=== PATIENT | female | born 1965 ===

== ENCOUNTER 2016-10-17 17:47 | Inpatient (IN) | payer OTHER ==
[2016-10-17] MEDS ORDERED: Sodium Chloride 0.9% 1,000 ML IV ONE (18:26)
--- NOTE | 2016-10-17 18:49 | RAD ---
PROCEDURE: CHEST RADIOGRAPH, 1 VIEW portable semi upright study 18:32. HISTORY: adm, epigastric COMPARISON: None available. FINDINGS: LUNGS: Clear. PLEURA: No pneumothorax or pleural fluid seen. CARDIOVASCULAR: No radiographic findings to suggest acute or significant cardiovascular disease. OSSEOUS STRUCTURES: No significant abnormalities. VISUALIZED UPPER ABDOMEN: Normal. OTHER FINDINGS: None. IMPRESSION: No active disease. Concordant results with the preliminary interpretation rendered by the emergency department physician procedure.
[2016-10-17 18:55] LABS: RBC URINE 1 /hpf (0-3); URINE BACTERIA RARE (<OCC); URINE BILIRUBIN NEGATIVE (NEGATIVE); URINE COLOR Straw (YELLOW); URINE GLUCOSE (UA) NORMAL (Normal); URINE KETONE NEGATIVE (NEGATIVE); URINE LEUKOCYTE ESTERASE NEG Leu/uL (Negative); URINE PROTEIN NEGATIVE (NEGATIVE); URINE UROBILINOGEN NORMAL mg/dL (0.2-1.0); WBC URINE 1 /hpf (0-5)
[2016-10-17 18:58] LABS: BASO # 0.1 K/uL (0.0-0.2); BASO % 0.4 % (0.0-2.0); EOS # 0.3 K/uL (0.0-0.7); EOS % 1.9 % (0.0-4.0); LYMPH # 2.1 K/uL (1.0-4.3); LYMPH % 14.5 % (20.0-40.0); MEAN CELL VOLUME 85.4 fL (81.0-99.0); MEAN CORPUSCULAR HEMOGLOBIN 28.6 pg (27.0-31.0); MEAN CORPUSCULAR HGB CONC 33.5 g/dL (33.0-37.0); MEAN PLATELET VOLUME 7.9 fL (7.2-11.7); MONO # 0.8 K/uL (0.0-0.8); MONO % 5.7 % (0.0-10.0); RED CELL DISTRIBUTION WIDTH 13.6 % (11.5-14.5); WHITE BLOOD COUNT 14.7 K/uL (4.8-10.8)
[2016-10-17] MEDS ORDERED: Sodium Chloride 0.9% 1,000 ML ONE (19:00)
[2016-10-17 19:01] LABS: URINE BLOOD NEGATIVE (NEGATIVE)
[2016-10-17 19:02] LABS: POTASSIUM 3.5 mmol/L (3.6-5.2); SODIUM 139 mmol/L (132-148)
[2016-10-17 19:04] LABS: ALB/GLOB RATIO 1.4 (1.0-2.1); ALKALINE PHOSPHATASE 126 U/L (38-126); AST/SGOT 24 U/L (14-36); BILIRUBIN,TOTAL 1.2 mg/dL (0.2-1.3); BLOOD UREA NITROGEN 12 mg/dL (7-17); CARBON DIOXIDE 28 mmol/L (22-30); GFR AFRICAN-AMERICAN > 60; TOTAL PROTEIN 7.6 g/dL (6.3-8.3)
[2016-10-17 19:05] LABS: ALT/SGPT 31 U/L (9-52); CALCIUM 9.1 mg/dl (8.6-10.4); GLUCOSE,RANDOM 109 mg/dL (65-105)
[2016-10-17 19:12] LABS: INR 1.1
[2016-10-17] MEDS ORDERED: Iohexol 350mg/ml 100 ML ONE (19:30)
--- NOTE | 2016-10-17 19:41 | C.PDOC ---
History Of Present Illness A 51 year old female presents to the ER c/o right upper quadrant pain for 2 days. Patient notes that symptoms are worse with food. Patient denies nausea, vomiting, diarrhea, fever, chills, trauma, vaginal bleeding or discharge, dysuria, or hematuria, or any other complaints. Time Seen by Provider: 10/17/16 18:15 Chief Complaint (Nursing): Abdominal Pain History Per: Patient History/Exam Limitations: no limitations Onset/Duration Of Symptoms: Days Current Symptoms Are (Timing): Still Present Severity: Mild Location Of Pain/Discomfort: RUQ Associated Symptoms: denies: Fever, Chills, Diarrhea Exacerbating Factors: Food Recent travel outside of the [place]: No Additional History Per: Patient Past Medical History Reviewed: Historical Data, Nursing Documentation, Vital Signs Vital Signs: Last Vital Signs Temp 98.5 F 10/17/16 18:07 Pulse 90 10/17/16 18:07 Resp 18 10/17/16 18:07 BP 139/79 10/17/16 18:07 Pulse Ox 100 10/17/16 22:01 - Medical History PMH: HTN, Hypercholesterolemia Family History: States: Unknown Family Hx - Social History Hx Alcohol Use: No Hx Substance Use: No - Immunization History Hx Tetanus Toxoid Vaccination: No Hx Influenza Vaccination: Yes Hx Pneumococcal Vaccination: No Review Of Systems Except As Marked, All Systems Reviewed And Found Negative. Constitutional: Negative for: Fever, Chills, Other (Trauma) Gastrointestinal: Positive for: Abdominal Pain. Negative for: Nausea, Vomiting , Diarrhea Genitourinary: Negative for: Dysuria, Hematuria, Vaginal Discharge, Vaginal Bleeding Physical Exam - Physical Exam Appears: Non-toxic, No Acute Distress, Other (Obese) Skin: Warm, Dry Head: Atraumatic, Normacephalic Eye(s): bilateral: Normal Inspection Cardiovascular: Rhythm Regular, No Murmur Respiratory: Normal Breath Sounds, No Rales, No Rhonchi, No Wheezing Gastrointestinal/Abdominal: Soft, Tenderness (RUQ tenderness) Neurological/Psych: Oriented x3, Normal Speech, Normal Cognition ED Course And Treatment - Laboratory Results Result Diagrams: 10/17/16 18:48 10/17/16 18:48 Lab Interpretation: Normal ECG: Interpreted By Mo ECG Rhythm: Sinus Rhythm, R BBB, Nonspecific Changes (? L posterior fascicular block) ECG Interpretation: Normal Rate From EC O2 Sat by Pulse Oximetry: 100 (RA) Pulse Ox Interpretation: Normal - Radiology CXR: Interpreted by Me CXR Interpretation: Yes: No Acute Disease - CT Scan/US CT Abd/Pel Other Rad Studies (CT/US): Interpreted By Me, Read By Radiologist CT/US Interpretation: FINDINGS: Lower thorax: The heart is mildly enlarged. There is minimal dependent atelectasis at the lung. bases. There is minimal scarring at the lung bases. ABDOMEN: Liver: There is fatty infiltration of the liver.The liver is enlarged. Gallbladder and bile ducts: Gallbladder is distended. There is pericholecystic fluid/edema. There is. no ductal dilatation. Pancreas: unremarkable. Spleen: unremarkable. Adrenals: unremarkable. Kidneys and ureters: unremarkable. Stomach and bowel: Stomach is partially distended. There is mild duodenal wall thickening. Rotation is normal. There is no obstruction. There is fluid and air throughout the small. bowel.moderate stool and air in the colon. There is scattered diverticulosis. Appendix: See stomach and bowel. PELVIS: Bladder: unremarkable. Reproductive : Uterus is absent. There are no adnexal masses. ABDOMEN and PELVIS: Intraperitoneal space: There are surgical clips in the pelvis. There is no free fluid.There is no free. air. Bones/joints: There is sclerosis of the sacroiliac joints.There are degenerative changes in the. osseus structures. Soft tissues: There is a small fat containing umbilical hernia. Vasculature: There is minimal atherosclerotic calcification in the aorta. Lymph nodes: There is no pathologic adenopathy. IMPRESSION: Distended gallbladder with pericholecystic fluid suggest cholecystitis; large fatty liver;. no CT findings of appendicitis or diverticulitis. Additional findings as described above. Progress Note: IVF, zosyn, toradol Reevaluation Time: 22:11 Reassessment Condition: Improved - Physician Consult Information Outcome Of Conversation: 2210: d/w Dr. Viveros (Surgery Science Consultant) and Surg To-ok to Gen Surg Medical Decision Making Medical Decision Making: Impression: 51 y.o c/o RUQ pain for 2 days Plans: -CT Abd/Pel -EKG -IV fluids -Toradol -Pepcid -Reassess and disposition Disposition Doctor Will See Patient In The: Hospital Counseled Patient/Family Regarding: Studies Performed, Diagnosis - Disposition Disposition: HOSPITALIZED Disposition Time: 22:12 Condition: GOOD - Clinical Impression Clinical Impression: Cholecystitis - Scribe Statement The provider has reviewed the documentation as recorded by the Scribe Rajinder espinoza All medical record entries made by the Nandoibe were at my direction and personally dictated by me. I have reviewed the chart and agree that the record accurately reflects my personal performance of the history, physical exam, medical decision making, and the department course for this patient. I have also personally directed, reviewed, and agree with the discharge instructions and disposition.
[2016-10-17] MEDS ORDERED: Piperacillin/Tazobact 3.375 gm 100 ML IV STA (20:26)
[2016-10-17] MEDS ORDERED: Piperacillin/Tazobact 3.375 gm 100 ML IVPB ONE (20:45)
--- NOTE | 2016-10-17 21:33 | CT ---
EXAM: CT Abdomen and Pelvis With Intravenous Contrast CLINICAL HISTORY: 51 years old, female; Pain; Abdominal pain; Flank; Right upper quadrant (ruq); Additional info: Ruq x 2 days, ? gb TECHNIQUE: Axial computed tomography images of the abdomen and pelvis with intravenous contrast. This CT exam was performed using one or more of the following dose reduction techniques: automated exposure control, adjustment of the mA and/or kV according to patient size, and/or use of iterative reconstruction technique. Coronal and sagittal reformatted images were created and reviewed. CONTRAST: 100 mL of omnipaque 350 administered intravenously. EXAM DATE/TIME: 10/17/2016 6:26 PM COMPARISON: There are no prior studies for comparison. FINDINGS: Lower thorax: The heart is mildly enlarged. There is minimal dependent atelectasis at the lung bases. There is minimal scarring at the lung bases. ABDOMEN: Liver: There is fatty infiltration of the liver.The liver is enlarged. Gallbladder and bile ducts: Gallbladder is distended. There is pericholecystic fluid/edema. There is no ductal dilatation. Pancreas: unremarkable Spleen: unremarkable Adrenals: unremarkable Kidneys and ureters: unremarkable Stomach and bowel: Stomach is partially distended. There is mild duodenal wall thickening. Rotation is normal. There is no obstruction. There is fluid and air throughout the small bowel.moderate stool and air in the colon. There is scattered diverticulosis. Appendix: See stomach and bowel PELVIS: Bladder: unremarkable Reproductive: Uterus is absent. There are no adnexal masses. ABDOMEN and PELVIS: Intraperitoneal space: There are surgical clips in the pelvis. There is no free fluid.There is no free air. Bones/joints: There is sclerosis of the sacroiliac joints.There are degenerative changes in the osseus structures. Soft tissues: There is a small fat containing umbilical hernia. Vasculature: There is minimal atherosclerotic calcification in the aorta. Lymph nodes: There is no pathologic adenopathy. IMPRESSION: Distended gallbladder with pericholecystic fluid suggest cholecystitis; large fatty liver; no CT findings of appendicitis or diverticulitis Additional findings as described above.
[2016-10-17] MEDS ORDERED: HYDROmorphone 0.5 mg/0.5 ml ISec IVP PRN (22:39)
[2016-10-17] MEDS ORDERED: Piperacillin/Tazobact 3.375 GM in Sodium Chloride 100 ML IVPB SCH (22:45)
[2016-10-17] MEDS: Piperacill/Tazo 3.375gm in Dex 3.375 GM/50 ML BAG IVPB SCH ×2 (23:00→23:25)
[2016-10-17] MEDS: Sodium Chloride 0.9% 1,000 ML IV SCH (23:15)
--- NOTE | 2016-10-18 04:10 | CP.PCM.CON ---
History of Present Illness - History of Present Illness History of Present Illness: General Surgery Consult Note for Dr. Viveros CC: Abdominal Pain since Friday HPI: This is a 51F with a PMH of HTN and HLD who presented to the [facility] ED due to abdominal pain she has been experiencing since Friday. She reports that it would come and go often brought on by greasy foods. Nothing makes it better food makes it worse. She denies any fevers at home however she reports chills. She denies any nausea vomitting or diarrhea. The patient denies any urinary symptoms, chest pain, or SOB. PMH: See above PSH: Open Hysterectomy ALL: NKDA Social: Denies Smoking, ETOH, Drugs Review of Systems - Review of Systems All systems: reviewed and no additional remarkable complaints except Past Patient History - Infectious Disease Hx of Infectious Diseases: None - Past Medical History & Family History Past Medical History?: Yes - Past Social History Smoking Status: Never Smoked - CARDIAC Hx Cardiac Disorders: Yes Hx Hypercholesterolemia: Yes Hx Hypertension: Yes - PULMONARY Hx Respiratory Disorders: No - NEUROLOGICAL Hx Neurological Disorder: No - HEENT Hx HEENT Problems: No - RENAL Hx Chronic Kidney Disease: No - ENDOCRINE/METABOLIC Hx Endocrine Disorders: No - HEMATOLOGICAL/ONCOLOGICAL Hx Blood Disorders: No - INTEGUMENTARY Hx Dermatological Problems: No - MUSCULOSKELETAL/RHEUMATOLOGICAL Hx Musculoskeletal Disorders: No Hx Falls: No - GASTROINTESTINAL Hx Gastrointestinal Disorders: No - GENITOURINARY/GYNECOLOGICAL Hx Genitourinary Disorders: No - PSYCHIATRIC Hx Psychophysiologic Disorder: No Hx Substance Use: No - SURGICAL HISTORY Hx Surgeries: Yes Hx Hysterectomy: Yes (2004) - ANESTHESIA Hx Anesthesia: Yes Hx Anesthesia Reactions: No Hx Malignant Hyperthermia: No Meds Allergies/Adverse Reactions: Allergies Allergy/AdvReac Type Severity Reaction Status Date / Time No Known Allergies Allergy Verified 10/17/16 18:26 - Medications Medications: Current Medications Hydromorphone HCl (Dilaudid) 0.5 mg IVP Q4H PRN PRN Reason: Pain, severe (8-10) Sodium Chloride (Sodium Chloride 0.9%) 1,000 mls @ 100 mls/hr IV .Q10H ZENAIDA Last Admin: 10/17/16 23:15 Dose: 100 mls/hr Piperacillin Sod/Tazobactam Sod (Zosyn 3.375 Gm Iv Premix) 3.375 gm in 50 mls @ 100 mls/hr IVPB Q8H [facility] Ondansetron HCl (Zofran Inj) 4 mg IVP Q4 PRN PRN Reason: Nausea/Vomiting Pneumococcal Polyvalent Vaccine (Pneumovax 23 Vaccine) 0.5 ml IM .ONCE ONE Stop: 10/20/16 10:01 Physical Exam - Constitutional Appears: Non-toxic, No Acute Distress - Head Exam Head Exam: ATRAUMATIC, NORMOCEPHALIC - Eye Exam Eye Exam: EOMI, Normal appearance - ENT Exam ENT Exam: Mucous Membranes Moist - Respiratory Exam Respiratory Exam: NORMAL BREATHING PATTERN - Cardiovascular Exam Cardiovascular Exam: REGULAR RHYTHM - GI/Abdominal Exam GI & Abdominal Exam: Soft, Tenderness. absent: Distended, Firm, Hernia, Rigid - Neurological Exam Neurological exam: Alert, Oriented x3 - Psychiatric Exam Psychiatric exam: Normal Affect, Normal Mood - Skin Skin Exam: Dry, Intact, Normal Color Results - Vital Signs Recent Vital Signs: Last Vital Signs Temp 98.1 F 10/18/16 00:18 Pulse 73 10/18/16 00:18 Resp 20 10/18/16 00:18 BP 117/76 10/18/16 00:18 Pulse Ox 97 10/18/16 00:18 - Labs Result Diagrams: 10/17/16 18:48 10/17/16 18:48 - Imaging and Cardiology CT scan - abdomen Status: Image reviewed by me, Report reviewed by me US - abdomen Status: Image reviewed by me, Report reviewed by me Assessment & Plan - Assessment and Plan (Free Text) Assessment: This is a 51F with a PMH of HLD and HTN who is presenting with acute cholecystitis, CT showed GB wall thickening and distended GB Admitted to Dr. Hull' Service GB US official read pending VSS, Labs grossly normal NPO Zosyn Dilaudid OR Booked as addon on friday D/W Dr. Felice Roy PGY-1
[2016-10-18] MEDS: Piperacill/Tazo 3.375gm in Dex 3.375 GM/50 ML BAG IVPB SCH ×3 (05:05→21:30)
--- NOTE | 2016-10-18 06:21 | CP.PCM.HP ---
History of Present Illness - History of Present Illness History of Present Illness: History of Present Illness: General Surgery Consult Note for Dr. Viveros CC: Abdominal Pain since Friday HPI: This is a 51F with a PMH of HTN and HLD who presented to the [facility] ED due to abdominal pain she has been experiencing since Friday. She reports that it would come and go often brought on by greasy foods. Nothing makes it better food makes it worse. She denies any fevers at home however she reports chills. She denies any nausea vomitting or diarrhea. The patient denies any urinary symptoms, chest pain, or SOB. PMH: See above PSH: Open Hysterectomy ALL: NKDA Social: Denies Smoking, ETOH, Drugs Review of Systems - Review of Systems All systems: reviewed and no additional remarkable complaints except Past Patient History - Infectious Disease Hx of Infectious Diseases: None - Past Medical History & Family History Past Medical History?: Yes - Past Social History Smoking Status: Never Smoked - CARDIAC Hx Cardiac Disorders: Yes Hx Hypercholesterolemia: Yes Hx Hypertension: Yes - PULMONARY Hx Respiratory Disorders: No - NEUROLOGICAL Hx Neurological Disorder: No - HEENT Hx HEENT Problems: No - RENAL Hx Chronic Kidney Disease: No - ENDOCRINE/METABOLIC Hx Endocrine Disorders: No - HEMATOLOGICAL/ONCOLOGICAL Hx Blood Disorders: No - INTEGUMENTARY Hx Dermatological Problems: No - MUSCULOSKELETAL/RHEUMATOLOGICAL Hx Musculoskeletal Disorders: No Hx Falls: No - GASTROINTESTINAL Hx Gastrointestinal Disorders: No - GENITOURINARY/GYNECOLOGICAL Hx Genitourinary Disorders: No - PSYCHIATRIC Hx Psychophysiologic Disorder: No Hx Substance Use: No - SURGICAL HISTORY Hx Surgeries: Yes Hx Hysterectomy: Yes (2004) - ANESTHESIA Hx Anesthesia: Yes Hx Anesthesia Reactions: No Hx Malignant Hyperthermia: No Meds Allergies/Adverse Reactions: Allergies Allergy/AdvReac Type Severity Reaction Status Date / Time No Known Allergies Allergy Verified 10/17/16 18:26 - Medications Medications: Current Medications Hydromorphone HCl (Dilaudid) 0.5 mg IVP Q4H PRN PRN Reason: Pain, severe (8-10) Sodium Chloride (Sodium Chloride 0.9%) 1,000 mls @ 100 mls/hr IV .Q10H ZENAIDA Last Admin: 10/17/16 23:15 Dose: 100 mls/hr Piperacillin Sod/Tazobactam Sod (Zosyn 3.375 Gm Iv Premix) 3.375 gm in 50 mls @ 100 mls/hr IVPB Q8H ZENAIDA Ondansetron HCl (Zofran Inj) 4 mg IVP Q4 PRN PRN Reason: Nausea/Vomiting Pneumococcal Polyvalent Vaccine (Pneumovax 23 Vaccine) 0.5 ml IM .ONCE ONE Stop: 10/20/16 10:01 Physical Exam - Constitutional Appears: Non-toxic, No Acute Distress - Head Exam Head Exam: ATRAUMATIC, NORMOCEPHALIC - Eye Exam Eye Exam: EOMI, Normal appearance - ENT Exam ENT Exam: Mucous Membranes Moist - Respiratory Exam Respiratory Exam: NORMAL BREATHING PATTERN - Cardiovascular Exam Cardiovascular Exam: REGULAR RHYTHM - GI/Abdominal Exam GI & Abdominal Exam: Soft, Tenderness. absent: Distended, Firm, Hernia, Rigid - Neurological Exam Neurological exam: Alert, Oriented x3 - Psychiatric Exam Psychiatric exam: Normal Affect, Normal Mood - Skin Skin Exam: Dry, Intact, Normal Color Results - Vital Signs Recent Vital Signs: Last Vital Signs Temp 98.1 F 10/18/16 00:18 Pulse 73 10/18/16 00:18 Resp 20 10/18/16 00:18 BP 117/76 10/18/16 00:18 Pulse Ox 97 10/18/16 00:18 - Labs Result Diagrams: 10/17/16 18:48 10/17/16 18:48 - Imaging and Cardiology CT scan - abdomen Status: Image reviewed by me, Report reviewed by me US - abdomen Status: Image reviewed by me, Report reviewed by me Assessment & Plan - Assessment and Plan (Free Text) Assessment: This is a 51F with a PMH of HLD and HTN who is presenting with acute cholecystitis, CT showed GB wall thickening and distended GB Admitted to Dr. Hull' Service GB US official read pending VSS, Labs grossly normal NPO Zosyn Dilaudid OR Booked as addon on friday D/W Dr. Felice Roy PGY-1 Present on Admission - Present on Admission Any Indicators Present on Admission: No Past Patient History - Infectious Disease Hx of Infectious Diseases: None - Past Medical History & Family History Past Medical History?: Yes - Past Social History Smoking Status: Never Smoked - CARDIAC Hx Cardiac Disorders: Yes Hx Hypercholesterolemia: Yes Hx Hypertension: Yes - PULMONARY Hx Respiratory Disorders: No - NEUROLOGICAL Hx Neurological Disorder: No - HEENT Hx HEENT Problems: No - RENAL Hx Chronic Kidney Disease: No - ENDOCRINE/METABOLIC Hx Endocrine Disorders: No - HEMATOLOGICAL/ONCOLOGICAL Hx Blood Disorders: No - INTEGUMENTARY Hx Dermatological Problems: No - MUSCULOSKELETAL/RHEUMATOLOGICAL Hx Musculoskeletal Disorders: No Hx Falls: No - GASTROINTESTINAL Hx Gastrointestinal Disorders: No - GENITOURINARY/GYNECOLOGICAL Hx Genitourinary Disorders: No - PSYCHIATRIC Hx Psychophysiologic Disorder: No Hx Substance Use: No - SURGICAL HISTORY Hx Surgeries: Yes Hx Hysterectomy: Yes (2004) - ANESTHESIA Hx Anesthesia: Yes Hx Anesthesia Reactions: No Hx Malignant Hyperthermia: No Meds Allergies/Adverse Reactions: Allergies Allergy/AdvReac Type Severity Reaction Status Date / Time No Known Allergies Allergy Verified 10/17/16 18:26 Results - Vital Signs Recent Vital Signs: Last Vital Signs Temp 98.1 F 10/18/16 00:18 Pulse 73 10/18/16 00:18 Resp 20 10/18/16 00:18 BP 117/76 10/18/16 00:18 Pulse Ox 97 10/18/16 00:18 - Labs Result Diagrams: 10/17/16 18:48 10/17/16 18:48
--- NOTE | 2016-10-18 08:22 | US ---
HISTORY: Gallbladder Eval COMPARISON: Comparison is made to the previous same-day CT of the abdomen and pelvis with contrast TECHNIQUE: Sonographic evaluation of the abdomen. FINDINGS: LIVER: Measures 24.2 cm. Heterogeneous increased echogenicity of the liver parenchyma. No mass. No intrahepatic bile duct dilatation. GALLBLADDER: The gallbladder contains multiple stones and demonstrate diffuse wall thickening. Sonographic Howe's sign was reported by the public health technologist. The wall measures up to 10.4 millimeter. Findings suspicious for acute cholecystitis. COMMON BILE DUCT: Measures 9.6 mm. No stones. No dilatation. PANCREAS: The pancreas is obscured by overlying bowel gas. RIGHT KIDNEY: Measures 12.8 x 5.1 x 5.1cm. Normal echogenicity. No calculus, mass, or hydronephrosis. LEFT KIDNEY: Measures 13.2 x 6.5 x 5cm. Normal echogenicity. No calculus, mass, or hydronephrosis. SPLEEN: Normal in size and contour. No mass. AORTA: No aneurysmal dilatation. IVC: Unremarkable. OTHER FINDINGS: None. IMPRESSION: Findings suggestive of gallstones cholecystitis. Mildly dilated common bile duct. If clinically warranted further assessment by MRCP may be obtained. The pancreas is obscured by overlying bowel gas and cannot be fully evaluated in this study. [id number] hepatomegaly with findings suggestive of moderate hepatic steatosis. Preliminary report was submitted by [facility].
[2016-10-18] MEDS: Sodium Chloride 0.9% 1,000 ML IV SCH ×2 (08:32→15:55)
[2016-10-18 08:45] LABS: BASO % 0.4 % (0.0-2.0); EOS # 0.2 K/uL (0.0-0.7); EOS % 1.7 % (0.0-4.0); HEMATOCRIT 40.6 % (34.0-47.0); LYMPH # 1.8 K/uL (1.0-4.3); LYMPH % 13.7 % (20.0-40.0); MEAN CORPUSCULAR HEMOGLOBIN 28.3 pg (27.0-31.0); MEAN CORPUSCULAR HGB CONC 32.9 g/dL (33.0-37.0); MEAN PLATELET VOLUME 8.1 fL (7.2-11.7); MONO # 0.7 K/uL (0.0-0.8); MONO % 5.4 % (0.0-10.0); NRBC % 0.1 % (0.0-2.0); RED CELL DISTRIBUTION WIDTH 13.6 % (11.5-14.5); WHITE BLOOD COUNT 13.3 K/uL (4.8-10.8)
[2016-10-18 09:12] LABS: CHLORIDE 103 mmol/L (98-107)
[2016-10-18 09:13] LABS: POTASSIUM 3.5 mmol/L (3.6-5.2); SODIUM 141 mmol/L (132-148)
[2016-10-18 09:15] LABS: ALB/GLOB RATIO 1.3 (1.0-2.1); AST/SGOT 24 U/L (14-36); BILIRUBIN,TOTAL 1.2 mg/dL (0.2-1.3); CARBON DIOXIDE 27 mmol/L (22-30); GFR AFRICAN-AMERICAN > 60; TOTAL PROTEIN 7.1 g/dL (6.3-8.3)
[2016-10-18 09:16] LABS: ALKALINE PHOSPHATASE 114 U/L (38-126); ALT/SGPT 21 U/L (9-52); BLOOD UREA NITROGEN 8 mg/dL (7-17); CALCIUM 8.7 mg/dl (8.6-10.4); GLUCOSE,RANDOM 106 mg/dL (65-105)
[2016-10-18] MEDS ORDERED: Lactated Ringer's 1,000 ML IV ONE ×2 (13:45)
[2016-10-18] MEDS ORDERED: Propofol 10 mg/ml Inj (20 ML) ONE (13:54)
[2016-10-18] MEDS ORDERED: Midazolam 2 MG/2 ML VIAL ONE (13:55)
[2016-10-18] MEDS ORDERED: Succinylcholine Chloride 20 mg/ml Syr (5 ml) IV ONE (14:16)
[2016-10-18] MEDS ORDERED: Rocuronium 10 mg/ml (5 ml) ONE (14:16)
[2016-10-18] MEDS ORDERED: HYDROmorphone 0.5 mg/0.5 ml ISec IVP PRN (14:24)
[2016-10-18] MEDS ORDERED: Morphine 4 MG/ML VIAL ONE (15:01)
[2016-10-18] MEDS ORDERED: Oxycodone/Acetaminophen 5/325 mg Tab PO PRN ×2 (15:24→15:27)
--- NOTE | 2016-10-18 15:24 | PCM.SURG1 ---
Surgeon's Initial Post Op Note - Surgeon's Notes Surgeon: Dr. Viveros Dot Net Developer: Dr. Pratt Type of Anesthesia: General Endo Pre-Operative Diagnosis: acute cholecystitis Operative Findings: inflammed gallbladder Post-Operative Diagnosis: same Operation Performed: laparoscopic cholecystectomy Specimen/Specimens Removed: gallbladder Estimated Blood Loss: EBL {In ML}: 100 Blood Products Given: N/A Drains Used: No Drains Post-Op Condition: Good Date of Surgery/Procedure: 10/18/16 Time of Surgery/Procedure: 15:24
--- NOTE | 2016-10-18 17:08 | CARD ---
APPROVED REPORT EKG Measurement Heart [id number] <Conclusion> Normal sinus rhythm Right bundle branch block Left posterior fascicular block Bifascicular block Inferior infarct, age undetermined Abnormal ECG
[2016-10-18 17:25] LABS: CHLORIDE 97 mmol/L (98-107)
[2016-10-18] MEDS: HYDROmorphone 0.5 mg/0.5 ml ISec IVP PRN (21:31)
[2016-10-19] MEDS: Sodium Chloride 0.9% 1,000 ML IV SCH ×3 (00:13→07:36)
[2016-10-19 01:13] VITALS: RESP 20
[2016-10-19] MEDS: Piperacill/Tazo 3.375gm in Dex 3.375 GM/50 ML BAG IVPB SCH ×2 (04:15→12:45)
[2016-10-19] MEDS: HYDROmorphone 0.5 mg/0.5 ml ISec IVP PRN (04:20)
[2016-10-19 07:53] LABS: BASO % 0.2 % (0.0-2.0); HEMATOCRIT 37.6 % (34.0-47.0); LYMPH % 5.2 % (20.0-40.0); MEAN CELL VOLUME 85.9 fL (81.0-99.0); MEAN CORPUSCULAR HEMOGLOBIN 28.4 pg (27.0-31.0); MEAN CORPUSCULAR HGB CONC 33.1 g/dL (33.0-37.0); MEAN PLATELET VOLUME 8.1 fL (7.2-11.7); MONO # 0.5 K/uL (0.0-0.8); MONO % 2.8 % (0.0-10.0); PLATELET COUNT 314 K/uL (130-400); RED CELL DISTRIBUTION WIDTH 13.6 % (11.5-14.5); WHITE BLOOD COUNT 18.9 K/uL (4.8-10.8)
[2016-10-19 07:58] LABS: CHLORIDE 98 mmol/L (98-107)
[2016-10-19 07:59] LABS: POTASSIUM 4.1 mmol/L (3.6-5.2); SODIUM 137 mmol/L (132-148)
[2016-10-19 08:01] LABS: ALB/GLOB RATIO 1.2 (1.0-2.1); ALKALINE PHOSPHATASE 95 U/L (38-126); AST/SGOT 56 U/L (14-36); BLOOD UREA NITROGEN 11 mg/dL (7-17); CARBON DIOXIDE 26 mmol/L (22-30); GFR AFRICAN-AMERICAN > 60; TOTAL PROTEIN 6.7 g/dL (6.3-8.3)
[2016-10-19 08:02] LABS: ALT/SGPT 54 U/L (9-52); CALCIUM 8.8 mg/dl (8.6-10.4); GLUCOSE,RANDOM 144 mg/dL (65-105)
[2016-10-19 08:04] VITALS: BP 124/86; PULSE 68; TEMP 98.2; O2SAT 92
[2016-10-19] MEDS ORDERED: Enoxaparin 40 mg Syringe SC SCH (10:00)
[2016-10-19 10:49] LABS: NEUTROPHIL 92 % (50-75); TOTAL CELLS COUNTED 100
[2016-10-19 10:50] LABS: LARGE PLATELETS PRESENT
--- NOTE | 2016-10-19 11:01 | CP.PCM.DIS ---
Provider - Provider Date of Admission: 10/17/16 22:31 Attending physician: Eva Viveros MD Time Spent in preparation of Discharge (in minutes): 20 Diagnosis - Discharge Diagnosis (1) Cholecystitis Status: Acute Priority: High Hospital Course - Lab Results Lab Results: Most Recent Lab Values WBC 18.9 K/uL (4.8-10.8) H 10/19/16 07:43 RBC 4.37 Mil/uL (3.80-5.20) 10/19/16 07:43 Hgb 12.4 g/dL (11.0-16.0) 10/19/16 07:43 Hct 37.6 % (34.0-47.0) 10/19/16 07:43 MCV 85.9 fL (81.0-99.0) 10/19/16 07:43 MCH 28.4 pg (27.0-31.0) 10/19/16 07:43 MCHC 33.1 g/dL (33.0-37.0) 10/19/16 07:43 RDW 13.6 % (11.5-14.5) 10/19/16 07:43 Plt Count 314 K/uL (130-400) 10/19/16 07:43 MPV 8.1 fL (7.2-11.7) 10/19/16 07:43 Neut % (Auto) 91.8 % (50.0-75.0) H 10/19/16 07:43 Lymph % (Auto) 5.2 % (20.0-40.0) L 10/19/16 07:43 Rush % (Auto) 2.8 % (0.0-10.0) 10/19/16 07:43 Eos % (Auto) 0.0 % (0.0-4.0) 10/19/16 07:43 Baso % (Auto) 0.2 % (0.0-2.0) 10/19/16 07:43 Neut # 17.4 K/uL (1.8-7.0) H 10/19/16 07:43 Lymph # 1.0 K/uL (1.0-4.3) 10/19/16 07:43 Rush # 0.5 K/uL (0.0-0.8) 10/19/16 07:43 Eos # 0.0 K/uL (0.0-0.7) 10/19/16 07:43 Baso # 0.0 K/uL (0.0-0.2) 10/19/16 07:43 Neutrophils % (Manual) 92 % (50-75) H 10/19/16 07:43 Band Neutrophils % 2 % (0-2) 10/19/16 07:43 Lymphocytes % (Manual) 3 % (20-40) L 10/19/16 07:43 Monocytes % (Manual) 3 % (0-10) 10/19/16 07:43 Toxic Granulation Present 10/19/16 07:43 Platelet Estimate Normal (NORMAL) 10/19/16 07:43 Large Platelets Present 10/19/16 07:43 Polychromasia Slight 10/19/16 07:43 Hypochromasia (manual) Slight 10/19/16 07:43 Anisocytosis (manual) Slight 10/19/16 07:43 PT 12.6 SECONDS (9.7-12.2) H 10/17/16 18:48 INR 1.1 10/17/16 18:48 APTT 32 SECONDS (21-34) 10/17/16 18:48 Sodium 137 mmol/L (132-148) 10/19/16 07:43 Potassium 4.1 mmol/L (3.6-5.2) 10/19/16 07:43 Chloride 98 mmol/L (98-107) 10/19/16 07:43 Carbon Dioxide 26 mmol/L (22-30) 10/19/16 07:43 Anion Gap 18 (10-20) 10/19/16 07:43 BUN 11 mg/dL (7-17) 10/19/16 07:43 Creatinine 0.6 MG/DL (0.7-1.2) L 10/19/16 07:43 Est GFR ( Amer) > 60 10/19/16 07:43 Est GFR (Non-Af Amer) > 60 10/19/16 07:43 Random Glucose 144 mg/dL (65-105) H 10/19/16 07:43 Calcium 8.8 mg/dl (8.6-10.4) 10/19/16 07:43 Total Bilirubin 1.0 mg/dL (0.2-1.3) 10/19/16 07:43 AST 56 U/L (14-36) H D 10/19/16 07:43 ALT 54 U/L (9-52) H D 10/19/16 07:43 Alkaline Phosphatase 95 U/L (38-126) 10/19/16 07:43 Troponin I < 0.0120 ng/mL (0.00-0.120) 10/17/16 18:48 NT-Pro-B Natriuret Pep 20.8 pg/mL (0-900) 10/17/16 18:48 Total Protein 6.7 g/dL (6.3-8.3) 10/19/16 07:43 Albumin 3.7 g/dL (3.5-5.0) 10/19/16 07:43 Globulin 3.0 gm/dL (2.2-3.9) 10/19/16 07:43 Albumin/Globulin Ratio 1.2 (1.0-2.1) 10/19/16 07:43 Lipase 50 U/L (23-300) 10/17/16 18:48 Urine Color Straw (YELLOW) 10/17/16 18:48 Urine Clarity Clear (Clear) 10/17/16 18:48 Urine pH 6.0 (5.0-8.0) 10/17/16 18:48 Ur Specific [place] 1.003 (1.003-1.030) 10/17/16 18:48 Urine Protein Negative mg/dL (NEGATIVE) 10/17/16 18:48 Urine Glucose (UA) Normal mg/dL (Normal) 10/17/16 18:48 Urine Ketones Negative mg/dL (NEGATIVE) 10/17/16 18:48 Urine Blood Negative (NEGATIVE) 10/17/16 18:48 Urine Nitrate Negative (NEGATIVE) 10/17/16 18:48 Urine Bilirubin Negative (NEGATIVE) 10/17/16 18:48 Urine Urobilinogen Normal mg/dL (0.2-1.0) 10/17/16 18:48 Ur Leukocyte Esterase Neg Eryn/uL (Negative) 10/17/16 18:48 Urine WBC (Auto) 1 /hpf (0-5) 10/17/16 18:48 Urine RBC (Auto) 1 /hpf (0-3) 10/17/16 18:48 Ur Squamous Epith Cells 1 /hpf (0-5) 10/17/16 18:48 Urine Bacteria Rare (<OCC) 10/17/16 18:48 Urine HCG, Qual Negative (NEGATIVE) 10/17/16 18:49 - Hospital Course Hospital Course: Patient was admitted to the hospital and subsequently taken to OR for diagnosis of acute cholecystitis. Patient tolerated procedure well. Was started on regular diet immediately post op which she tolerated. Pain was controlled. Patient was OOB ambulating w/o difficulty. Patient remained afebrile overnight and was deemed in good stable condition for discharge home with instructions to follow up with Dr. Viveros in 1-2 weeks. Discharge Exam - Head Exam Head Exam: ATRAUMATIC, NORMOCEPHALIC - Eye Exam Eye Exam: EOMI, Normal appearance - ENT Exam ENT Exam: Mucous Membranes Moist - Cardiovascular Exam Cardiovascular Exam: REGULAR RHYTHM. absent: Tachycardia - GI/Abdominal Exam GI & Abdominal Exam: Soft. absent: Distended, Guarding, Rigid, Tenderness Additional comments: incisions CDI w/ some bruising around umbilical port site - Extremities Exam Extremities exam: normal inspection - Neurological Exam Neurological exam: Alert, Oriented x3 - Skin Skin Exam: Dry, Intact, Normal Color, Warm Discharge Plan - Discharge Medications Prescriptions: Amoxicillin/Clavulanate [Augmentin 500 MG-125 MG] 1 tab PO BID #14 tab - Follow Up Plan Condition: GOOD Disposition: HOME/ ROUTINE Patient education suggested?: Yes Instructions: Laparoscopic Cholecystectomy (DC) Additional Instructions: Follow up with Dr. Viveros in 1-2 weeks. Resume any home meds. Take antiobiotic at home for full course. Take tylenol or motrin for pain. If more pain medication required please contact Dr. Viveros's office. Can return to work on FridayOctober 28.
[2016-10-20] MEDS ORDERED: Pneumococcal 23-Valent Vaccine IM ONE (10:00)
--- NOTE | 2016-10-21 11:45 | OP ---
PROCEDURE DATE: 10/18/2016 SURGEON: Dr. Viveros. STEWARD/STEWARDESS WINE: Dr. Pratt. ANESTHESIA: General. PREOPERATIVE DIAGNOSIS: Acute cholecystitis. POSTOPERATIVE DIAGNOSIS: Acute cholecystitis. PROCEDURE: Laparoscopic cholecystectomy. DESCRIPTION OF OPERATION: With the patient in the supine position under adequate general anesthesia, the abdomen was prepped and draped in the usual sterile manner. Veress needle puncture was performe d at the umbilicus with insufflation to 15 cm water pressure of CO2, and a 10 mm laparoscopic trocar was inserted via an infraumbilical incision. Under direct vision, additional trocars were inserted i n the epigastrium and right costal margin. The gallbladder was visualized. It was noted to be diste nded and thickened, consistent with acute cholecystitis. The gallbladder was aspirated of approximat [place] 20 mL of nonpurulent appearing bile, and the gallbladder fundus was grasped and elevated. The in fundibular area was cleared of inflammatory reaction and the infundibulum was grasped and retracted l aterally and the cystic duct was identified and dissected. The cystic duct was cleared down toward t he common bile duct and the cystic duct was then triply clipped and divided. Anterior and posterior branches of the cystic artery were similarly identified and each was triply clipped and divided, and the gallbladder was dissected free of the liver bed using electrocautery. Both the peritoneal reflec tion and the liver bed were markedly edematous and thickened, consistent with acute cholecystitis. T he liver bed was inspected for hemostasis and the dissection was completed. The gallbladder was plac ed in a specimen retrieval bag and removed via the umbilical port site, which was then enlarged sligh tly to accommodate the large stone and the thickness of the gallbladder wall. The right upper quadra nt was irrigated and suctioned. The pneumoperitoneum was released and the trocars were removed. The umbilical port site was closed with 2 [id number] fascial sutures of 0 Vicryl. Subcuticular prerna sure was performed at all the port sites with 4-0 Monocryl suture and Dermabond. The dry sterile cole ssings were applied. The patient tolerated the procedure well and transferred to the recovery room i n stable condition. Estimated blood loss for the procedure was 100 mL. Eva Viveros MD cc: 58 TT: 10/21/2016 11:44:28 mn
== END 2016-10-19 14:16 | disposition home or self-care (01) | DRG 419 ==
LOC: C.ER 17:47 → C.3T 22:31
PROVIDERS: ADMIT Specialist; ATTEND Specialist
PROC: 0FT44ZZ Resection of Gallbladder, Percutaneous Endoscopic Approach (ICD-10-PCS; principal; 2016-10-18 12:30)
DX: K80.12 Calculus of gallbladder with acute and chronic cholecystitis without obstruction (principal); I10 Essential (primary) hypertension; E78.00 Pure hypercholesterolemia, unspecified; Z90.710 Acquired absence of both cervix and uterus